=== PATIENT | male | born 1995 | race Caucasian/White ===

== ENCOUNTER 2017-07-23 10:14 | Emergency (ER) | payer OTHER ==
[2017-07-23 10:21] VITALS: PULSE 98; RESP 16
--- NOTE | 2017-07-23 10:48 | EDPHY ---
H & P Stated Complaint: blood in urine - Personal History Current Tetanus/Diphtheria Vaccine: Yes Current Tetanus Diphtheria and Acellular Pertussis (TDAP): Yes - Medical/Surgical History Hx Asthma: No Hx Chronic Respiratory Disease: No Hx Diabetes: No Hx Cardiac Disease: No Hx Renal Disease: No Hx Cirrhosis: No Hx Alcoholism: No Hx HIV/AIDS: No Hx Splenectomy or Spleen Trauma: No Other PMH: nasal suregry, - Social History Smoking Status: Never smoked Time Seen by Provider: 07/23/17 10:30 HPI/ROS: CHIEF COMPLAINT: Hematuria, left flank pain post snowboarding accident HISTORY OF PRESENT ILLNESS: 21-year-old male otherwise healthy states that 2 days ago he [place] snow[place], landed on his left flank. He has been complaining of left flank pain and hematuria ever since. He notes that the hematuria appears to be decreasing in intensity. Was seen at [facility] yesterday and was noted to have hematuria and referred to the ER. Hematuria continues as does his left flank pain. No dyspnea. No abdominal pain. No straddle injury. No genitalia injury. No vasculopathy history. PRIMARY CARE PROVIDER: [facility] REVIEW OF SYSTEMS: A ten point review of systems was performed and is negative with the exception of the items mentioned in the HPI PAST MEDICAL/SURGICAL HISTORY: no anticoagulant use, no relevant medical/ surgical history SOCIAL HISTORY: denies alcohol use at time of incident PHYSICAL EXAM 1) GENERAL: Well-developed, well-nourished, alert and oriented. Answering questions appropriately. 2) HEAD: Normocephalic, atraumatic 3) HEENT: Pupils equal, round, reactive to light bilaterally. Negative Horners. Nasopharynx, oropharynx, clear. No deformity or angulation of nose. No septal hematoma. No rhinorrhea. No oral trauma. 4) NECK: No cervical collar is on. Posterior cervical spine is nontender, no stepoff, no effusion. Full range of motion which does not elicit any midline cervical spine pain, no posterior midline tenderness, no step-off. 5) LUNGS: Clear to auscultation bilaterally, no wheezes, no rhonchi, no retractions. No obvious signs of trauma. No chest wall pain. No flaring, no grunting. Moving symmetrically. No crepitus. 6) HEART: [Regular rate and rhythm, 7) ABDOMEN: No guarding, no rebound, no focal tenderness, no peritoneal signs, no signs of trauma, no ecchymosis 8) MUSCULOSKELETAL: Moving all extremities, no focal areas of tenderness, no obvious trauma. 9) BACK: No signs of trauma no ecchymosis, positive CVA tenderness. No midline vertebral tenderness, no fluctuance, no step-off, no obvious trauma, no visual or palpable abnormality. 10) SKIN: No laceration. No abrasion 11) : Circumcised no urethral discharge no blood at the urethral meatus. No signs of testicular or penile trauma. DIFFERENTIAL DIAGNOSIS: In no particular include but limited to muscle strain, renal contusion, renal laceration, splenic laceration, splenic contusion, rhabdomyolysis (Pelon Patel) Constitutional: Initial Vital Signs Temperature (C) 36.8 C 07/23/17 10:18 Heart Rate 98 07/23/17 10:18 Respiratory Rate 16 07/23/17 10:18 Blood Pressure 144/82 H 07/23/17 10:18 O2 Sat (%) 99 07/23/17 10:18 O2 Delivery Mode Room Air Allergies/Adverse Reactions: No Known Allergies Allergy (Unverified 07/23/17 10:18) Home Medications: Medication Instructions Recorded Adderall 10 MG (*) 07/23/17 LaMICtal 07/23/17 Seroquel 07/23/17 VYVANSE 07/23/17 Wellbutrin 100mg (*) 07/23/17 Medical Decision Making - Diagnostics Imaging Results: Images reviewed by myself (Pelon Patel) ED Course/Re-evaluation: 10:50 a.m.: Discussed the case with secondary supervising physician Dr. Law in the ER. Informed the patient that I am concerned about possible renal or splenic injury. Recommended CT imaging. Indications risks benefits including but not limited to radiation exposure, IV contrast nephropathy, financial cost, , discussed with patient and he consents. 11:56 a.m.: CT imaging results discussed with patient. Also noted to be hemoconcentrated. He has been given IV hydration in the ER and recommend continued oral hydration. He has had no nausea or vomiting. Bowel movements have been normal as well. Discussed his elevated CK with him. Negative for rhabdomyolysis but still elevated and recommended continued hydration. Given incentive spirometer. He feels comfortable being discharged. All questions and concerns addressed by myself. (Pelon Patel) Other Provider: The patient was evaluated and managed by the Physician Mulling Machine Operator. I discussed the patient's presentation and course with the physician administrative office assistant and agree with the evaluation. My co-signature indicates that I have reviewed this chart and I agree with the findings and plan of care as documented. I am the secondary supervising physician. (France Law) - Data Points Laboratory Results: Laboratory Results 07/23/17 10:46 07/23/17 10:46 Medications Given: Discontinued Medications Sodium Chloride (Ns) 1,000 mls @ 0 mls/hr IV ONCE ONE PRN Reason: Wide Open Stop: 07/23/17 11:48 Last Admin: 07/23/17 11:55 Dose: 1,000 mls Departure - Departure Disposition: Home, Routine, Self-Care Clinical Impression: Rib fracture, Snowboarding accident, Volume depletion, Elevated CK Condition: Good Instructions: Rib Fracture (ED) Additional Instructions: Return emergency department if you develop shortness of breath, abdominal pain, increase in blood in your urine or any other symptoms that concern you Referrals: JONNY ROTHMAN [Other] - 1-2 days without fail
[2017-07-23 10:56] LABS: PLATELET COUNT 250 10^3/uL (150-400)
[2017-07-23] MEDS ORDERED: IOPAMIDOL (ISOVUE-300) 100 ML BTL ONE (11:00)
[2017-07-23 11:12] LABS: CREATINE KINASE 1195 IU/L (0-224)
[2017-07-23] MEDS ORDERED: NS 1,000 ML IV ONE (11:47)
[2017-07-23 13:26] VITALS: BP 145/81; TEMP 98.1; O2SAT 96
== END 2017-07-23 13:26 | disposition home or self-care (01) ==
DX: S22.32XA Fracture of one rib, left side, initial encounter for closed fracture (principal); R74.8 Abnormal levels of other serum enzymes; E86.9 Volume depletion, unspecified; V00.318A Other snowboard accident, initial encounter; Y92.89 Other specified places as the place of occurrence of the external cause; Y99.8 Other external cause status; Y93.23 Activity, snow (alpine) (downhill) skiing, snowboarding, sledding, tobogganing and snow tubing
CPT/HCPCS: 82947-QW; Q9967

== ENCOUNTER → 2018-06-14 | Outpatient (CLI) | payer OTHER | LOC: BMCIMAGING 14:21 → MERGE 14:21 | PROVIDERS: ATTEND Family Medicine | DX: S43.101A Unspecified dislocation of right acromioclavicular joint, initial encounter (principal) ==

== ENCOUNTER → 2018-11-14 | Outpatient (CLI) | payer OTHER | LOC: BMCIMAGING 13:59 ==